=== PATIENT | female | born 1970 | race Caucasian/White ===

== ENCOUNTER 2023-08-06 15:22 | Emergency (ER) | payer MEDICAID ==
[~2023-08-06] VITALS: Ht 154.9 cm; Wt 62.7 kg
[2023-08-06 15:36] VITALS: BP 131/60; PULSE 72; RESP 18; TEMP 98.5; O2SAT 96
== END 2023-08-06 18:35 | disposition left against medical advice (07) ==
LOC: ER 15:22
DX: S00.93XA Contusion of unspecified part of head, initial encounter (principal); Z53.21 Procedure and treatment not carried out due to patient leaving prior to being seen by health care provider; V49.9XXA Car occupant (driver) (passenger) injured in unspecified traffic accident, initial encounter; Y93.89 Activity, other specified; Y92.89 Other specified places as the place of occurrence of the external cause; Y99.8 Other external cause status